=== PATIENT | female | born 1980 | race Hispanic/Latino ===

== ENCOUNTER 2018-08-12 17:35 | Emergency (ER) | payer BC, SELFPAY ==
[~2018-08-12 17:35] MED LIST: Iopamidol 370 76% 100 ML VIAL ONE
[2018-08-12] MEDS ORDERED: Ketorolac Tromethamine 30 MG/ML VIAL ONE (17:59)
[2018-08-12 18:07] LABS: #Basophils 0.1 thou/uL (0.0-0.2); #Eosinphils 0.1 thou/uL (0.0-0.7); #Lymphocytes 1.7 thou/uL (1.20-3.40); #Monocytes 0.5 thou/uL (0.11-0.59); #Neutrophils 6.1 thou/uL (1.40-6.50); %Basophils 0.8 % (0.0-1.0); %Eosinophils 1.3 % (0.0-10.0); %Lymphocytes 20.1 % (21.0-51.0); %Monocytes 6.1 % (0.0-10.0); %Neutrophils 71.6 % (42.0-75.0); Hemoglobin 13.1 g/dL (12.0-16.0); Mean Corpuscular Hemoglobin 28.7 pg (27.0-31.0); Mean Corpuscular Volume 89.5 fL (78.0-98.0); Mean Platelet Volume 6.4 fL (7.4-10.4); Platelet Count 357 thou/uL (130-400); RBC Distribution Width 12.1 % (11.5-14.5); Red Blood Cell (RBC) Count 4.56 mill/uL (4.20-5.40); White Blood Cell (WBC) Count 8.6 thou/uL (4.8-10.8)
[2018-08-12 18:09] LABS: Pregnancy Test - Urine (BHCG) Negative (Negative); Pregu Control Background? CLEAR/WHITE (CLR/WHITE); Pregu Control Bar Appear? YES (CONTROL BAR); Specific Gravity 1.025 (1.002-1.036)
[2018-08-12 18:10] LABS: Bilirubin Small (Negative); Blood, Urine Trace (Negative); Clarity Cloudy (Clear); Glucose, Urine (Dipstick) Negative (Negative); Leukocyte Negative (Negative); Nitrite Negative (Negative); Protein, Urine (Dipstick) 30 mg/dL (Neg-Trace); Specific Gravity, Urine 1.025 (1.005-1.030); pH, Urine 6.5 (5.0-9.0)
[2018-08-12 18:13] LABS: Bacteria/HPF 1+ HPF (None Seen); Crystals/HPF None Seen HPF (Negative); Hyaline Casts/LPF NONE SEEN LPF (0-3 Hyaline); Other Casts/LPF None Seen LPF (0-3 Hyaline); Oval Fat Bodies/HPF None Seen HPF (None Seen); RBC/HPF 0-3 HPF (0-3); Renal Epithelial None Seen HPF (0-3); Sperm/HPF None Seen HPF (None Seen); Transitional Epithelial NONE SEEN HPF (0-3); Trichomonas/HPF None Seen HPF (None Seen); WBC/HPF 0-3 HPF (0-3); Yeast-All Forms None Seen HPF (None Seen)
[2018-08-12] MEDS ORDERED: Ondansetron PF 4 MG/2 ML Vial ONE (18:23)
[2018-08-12 18:24] LABS: ALT (SGPT) 17 U/L (8-55); AST (SGOT) 12 U/L (5-34); Albumin 4.4 g/dL (3.5-5.0); Alkaline Phosphatase 67 U/L (40-150); Anion Gap 13 mmol/L (10-20); BUN (Urea Nitrogen) 16 mg/dL (7.0-18.7); Bilirubin, Total 0.2 mg/dL (0.2-1.2); Calc. Creatinine Clearance 0 mL/min (70-130); Calcium 9.6 mg/dL (7.8-10.44); Carbon Dioxide 22 mmol/L (22-29); Chloride 109 mmol/L (98-107); Estimated GFR-MDRD Greater than 90; Globulin 3.1 g/dL (2.4-3.5); Glucose 86 mg/dL (70-105); Potassium 3.7 mmol/L (3.5-5.1); Protein, Total 7.5 g/dL (6.0-8.3); Sodium 140 mmol/L (136-145)
[2018-08-12] MEDS ORDERED: Piperacillin/Tazobactam 4.5 GM VIAL ONE (19:04)
[2018-08-12] MEDS ORDERED: Sodium Chloride 0.9% 0 ML ONE (19:05)
--- NOTE | 2018-08-12 19:19 | CT ---
CT ABDOMEN AND PELVIS WITH CONTRAST: 08/12/[address] of the abdomen and pelvis was done for evaluation of right lower quadrant pain. Axial slice s were acquired after giving IV contrast, then coronal and sagittal reconstructions were done. The appendix is mildly distended measuring 8 to 9 mm in width, particularly towards its more distal p ortions near the tip. There is very small amount of periappendiceal streaking. There is no free fluid or other signs of perforation or abscess. Findings are consistent with acute appendicitis. The lung bases are clear. The liver, spleen, pancreas, gallbladder, adrenal glands, kidneys, and abdo greta aorta all were unremarkable in appearance. CT of the pelvis showed a 4.4 cm calcified uterine fibroid near the uterine fundus. It is exophytic i n nature. Other than the appendiceal findings, there were no other findings of concern in the pelvis. Incidentally noted is degeneration of the L5-S1 disc with disc space narrowing at this level. IMPRESSION: 1. Findings consistent with acute appendicitis without perforation. 2. Calcified uterine fibroid. Findings discussed with Dr. Gant at 1854 on 08/12/18. POS: HOME
== END 2018-08-12 20:28 | disposition short-term general hospital (02) ==
LOC: BURERS 17:35
DX: K35.80 Unspecified acute appendicitis (principal)
CPT/HCPCS: 74177; 80053; 81003; 81015; 81025; 83605; 85025; 96365; 96375; J1885; J2405; J2543; J3490; Q9967